=== PATIENT | male | born 2000 | race Caucasian/White ===

== ENCOUNTER 2024-11-28 08:29 | Emergency (ER) | payer SELFPAY ==
[~2024-11-28] VITALS: Ht 172.7 cm; Wt 102.0 kg
[2024-11-28] MEDS: SODIUM CHLORIDE 0.9% 1,000 ML IV ONE ×2 (09:09→11:59)
[2024-11-28 09:17] LABS: BASOPHILS % 0.6 % (0.0-2.0); EOSINOPHILS % 0.4 % (0.0-5.0); HEMATOCRIT. 46.1 % (42.0-52.0); LYMPHOCYTES % 23.2 % (20.0-50.0); MEAN CORPUSCULAR HGB CONC 34.7 g/dL (31.0-37.0); MEAN CORPUSCULAR VOLUME 86.5 fL (80.0-94.0); MEAN PLATELET VOLUME 7.9 fl (7.4-10.4); MONOCYTES % 7.3 % (2.0-8.0); NEUTROPHILS % 68.5 % (40.0-76.0); PLATELET 327 x1000/uL (130-400); RED BLOOD CELL COUNT 5.33 mill/uL (4.7-6.1); WHITE BLOOD COUNT 12.2 x1000/uL (4.5-11.0)
[2024-11-28 09:22] LABS: CARBON DIOXIDE 18 mEq/L (21-32); CHLORIDE 105 mEq/L (98-107); POTASSIUM 3.4 mEq/L (3.5-5.1); SODIUM 141 mEq/L (136-145)
[2024-11-28 09:23] LABS: CALCIUM 9.5 mg/dL (8.7-10.4)
[2024-11-28 09:28] LABS: ETHANOL BLOOD 215 mg/dL (<10); GLUCOSE 116 mg/dL (70-105); UREA NITROGEN BLOOD 10 mg/dL (9-23)
[2024-11-28 09:30] LABS: ACETAMINOPHEN < 2 ug/mL (10-30)
[2024-11-28] MEDS ORDERED: LORAZEPAM 2MG/ML INJ IM ONE (11:45)
[2024-11-28] MEDS: HALOPERIDOL LACTATE 5MG/ML VIAL IM ONE (11:58)
[2024-11-28] MEDS: DIPHENHYDRAMINE 50MG/ML VIAL IM ONE (11:59)
[2024-11-28] MEDS: LORAZEPAM 2MG/ML UD SYRINGE IM SCH (12:10)
[2024-11-28 13:30] VITALS: O2SAT 98
[2024-11-29 14:09] LABS: CLARITY URINE TURBID (CLEAR); COLOR URINE DARK YELLOW (YELLOW); GLUCOSE URINE NEGATIVE (NEGATIVE); KETONES URINE 1+ (NEGATIVE); LEUKOCYTE ESTERASE URINE NEGATIVE (NEGATIVE); NITRITE URINE NEGATIVE (NEGATIVE); OCCULT BLOOD URINE NEGATIVE (NEGATIVE); PH URINE 5.5 (4.5-8.0); PROTEIN URINE TRACE (NEGATIVE); SPECIFIC GRAVITY URINE 1.027 (1.005-1.030); UROBILINOGEN URINE 0.2 E.U./dL (0.2-1.0)
[2024-11-29 14:23] LABS: RBC URINE NONE SEEN /hpf (0-2); SQUAMOUS EPITHELIAL CELL URINE FEW /lpf (RARE/1+); WBC URINE 0-2 /hpf (0-2)
[2024-11-29 14:24] LABS: BACTERIA URINE TRACE; FINE GRANULAR CASTS URINE 0-5 /lpf; MUCUS URINE 3+ /lpf (NONE/TRACE)
[2024-11-29 14:39] LABS: *AMPHETAMINES SCREEN URINE PRESUMPTIVE POSITIVE (NEGATIVE); *BARBITURATES SCREEN URINE NEGATIVE (NEGATIVE); *BENZODIAZEPINES SCREEN URINE PRESUMPTIVE POSITIVE (NEGATIVE); *COCAINE SCREEN URINE NEGATIVE (NEGATIVE); CANNABINOID URINE SCREEN NEGATIVE (NEGATIVE); ECSTASY MDMA SCREEN URINE NEGATIVE (NEGATIVE); METHADONE URINE SCREEN NEGATIVE (NEGATIVE); OPIATES URINE SCREEN NEGATIVE (NEGATIVE); PHENCYCLIDINE URINE SCREEN NEGATIVE (NEGATIVE)
[2024-11-29] MEDS: RISPERIDONE 0.5MG TABLET PO SCH (21:53)
[2024-11-30] MEDS: QUETIAPINE FUMARATE 50MG TABLET PO SCH (00:46)
[2024-11-30 20:24] VITALS: BP 128/78; PULSE 76; RESP 18; TEMP 36.9; O2SAT 100
== END 2024-11-30 20:45 ==
LOC: ER 08:29
DX: R45.1 Restlessness and agitation (principal); F10.129 Alcohol abuse with intoxication, unspecified; F25.0 Schizoaffective disorder, bipolar type; R41.82 Altered mental status, unspecified; Z79.899 Other long term (current) drug therapy; Z91.51 Personal history of suicidal behavior; Y90.7 Blood alcohol level of 200-239 mg/100 ml
CPT/HCPCS: 80048; 80307; 80329; 80320; 85025; 36415; 70450; 93005; 96360; 96361; 96372; 99291; J1200; J1630; J2060; J7030; Z7610 ×5; A4606; G0480